=== PATIENT | male | born 1985 | race Caucasian/White ===

== ENCOUNTER 2023-03-21 14:49 | Outpatient (AMB) | payer OTHER, SELFPAY ==
[2023-03-21 14:56] VITALS: BP 124/74; PULSE 69; O2SAT 99; BMI 22.6
--- NOTE | 2023-03-21 14:56 | A.OFFPC_ITS ---
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 Unknown Last office visit/CPE: > 10 years Acute issue(s): PMHx: Hep C, Opiate dependency issues SurgHx: R lower leg & ankle fracture & repair about 3 years ago. FHx: Unknown SocHx: Hx of opiod use PFSH Medical History (Updated 03/21/23 @ 15:52 by Surendra Tran) Right ankle injury ADHD Surgical History (Updated 03/21/23 @ 15:06 by Nicole Jamison CMA) Hx of appendectomy Social History (Updated 03/21/23 @ 15:09 by Nicole Jamison CMA) Household Members: Family Are you a primary point of care specialist to a significant other at home: Yes (children) Questionnaire PHQ-9 Over the last 2 weeks, how often have you been bothered by any of the following problems? 1. Little interest or pleasure in doing things: more than half the days 2. Feeling down, depressed, or hopeless: more than half the days 3. Trouble falling or staying asleep, or sleeping too much: several days 4. Feeling tired or having little energy: more than half the days 5. Poor appetite or overeating: more than half the days 6. Feeling bad about yourself - or that you are a failure or have let yourself or your family down: more than half the days 7. Trouble concentrating on things, such as reading the newspaper or watching television: nearly every day 8. Moving or speaking so slowly that other people could have noticed. Or the op posite - being so fidgety or restless that you have been moving around a lot more than usual: nearly every day 9. Thoughts that you would be better off or of hurting yourself in some way: not at all Total score: 17 Source: Developed by Drs. Tae Paredes, Batsheva Pittman, Rad Worley and colleagues, with an educational gena from [employer]. Thrive Questionnaire Date Thrive assessed: 03/21/23 I am a: Patient What is your living situation today?: I have a steady place to live Within the past 12 months, did the food you bought not last and you didn't have the money to get more?: Never true Within the past 12 months, did you worry whether your food would run out before you got money to buy more?: Never true Do you have trouble paying for medicines?: No Do you have trouble getting transportation to medical appointments?: No Do you have trouble paying your heating and electricity bill?: No Do you have trouble taking care of your child, family member or friend?: No Do you have trouble with day-to-day activities such as bathing, preparing meals, shopping, managing finances, etc.?: Yes Are you currently unemployed and looking for a job?: Yes Are you interested in more education?: No THRIVE Score: 0 AUDIT C Alcohol Use Questionnaire (AUDIT-C) 1. How often do you have a drink containing alcohol?: Monthly or less 2. How many drinks containing alcohol do you have on a typical day when you are drinking?: 1 or 2 3. How often do you have six or more drinks on one occasion?: Never Total Score: 1 DESMOND-7 AMB Questionnaire DESMOND-7 Date DESMOND - 7 assessed: 03/21/23 Feeling nervous, anxious, or on edge: 2 = More than half the days Not being able to stop or control worryin = More than half the days Worrying too much about different things: 2 = More than half the days Trouble relaxin = More than half the days Being so restless that it is hard to sit still: 3 = Nearly every day Becoming easily annoyed or irritable: 2 = More than half the days Feeling afraid as if something awful might happen: 2 = More than half the days Total DESMOND-7 score (0-4 normal; 5-9 mild; 10-14 moderate; 15-21 severe): 15 Source: Developed by Batsheva Nogueira Kurt Kroenke and colleagues, with an educational gena from [employer]. Review of Systems Const Denies chills, Denies fatigue, Denies fever(s), Denies headache(s) and Denies weakness ENT Denies dizziness and Denies headache(s) Card Denies chest pain, Denies lightheadedness, Denies dyspnea and Denies other (Palpitations) Resp Denies cough, Denies dyspnea, Denies wheezing and Denies other ( shortness of breath) Musc Denies numbness and Denies tingling Neuro Denies dizziness, Denies headache(s), Denies numbness, Denies tingling, Denies paresthesias and Denies weakness Psych Denies anxiety and Denies depression Endo Denies fatigue Aller/Immun Denies wheezing Physical exam (Primary Care) Vital Signs: Last Vital Signs Pulse 69 03/21/23 14:56 BP 124/74 03/21/23 14:56 Pulse Ox 99 03/21/23 14:56 Oxygen Delivery Method Room Air 03/21/23 14:56 BMI result Body Mass Index 22.6 Tobacco/Smoking Status: Tobacco use Status Tobacco use date assessed 03/21/23 03/21/23 15:19 PHQ-9: PHQ-9 Score PHQ-9: Total score 17 03/21/23 15:19 Thrive Assessment: Date of Thrive Assessment Date Thrive assessed 03/21/23 03/21/23 15:19 Const General: no acute distress and well developed Nutritional Appearance: well nourished Orientation/consciousness: patient oriented x3 HENMT Head: Yes normocephalic and Yes atraumatic Eyes General: appearance normal, both eyes and all related structures Pupils: Equal, round and reactive pupils present EOM: EOMs intact bilaterally Resp Effort & Inspection: normal respiratory effort Auscultation: clear to auscultation bilaterally Cardio Rate: regular rate Rhythm: regular rhythm Heart sounds: S1 normal heart sound present, S2 normal heart sound present, no gallops, no murmurs and no rubs Neuro General: patient oriented x3 and gait normal Cranial nerves: Yes Equal, round and reactive pupils present Psych Affect: normal affect Assessment and Plan Assessment & Plan (1) History of hepatitis C: Code(s): Z86.19 - Personal history of other infectious and parasitic diseases Plan: Check?hepatitis?labs Will?likely?need?referral?to?gastroenterology?for?treatment (2) Wound of skin: Code(s): T14.8XXA - Other injury of unspecified body region, initial encounter Plan: Poorly?healing?wound?over?surgical?scar?at?right?lateral?ank le?after?open?reduction?and?fixation Can?try?Santyl Keep?the?remainder?of?the?scar/wound?moisturized (3) Right leg pain: Code(s): M79.604 - Pain in right leg Plan: Chronic?leg?pain?at?region?of?fracture?and?repair Will?give?him?a?script?for?gabapentin Avoiding?opioids (4) Knee pain: Code(s): M25.569 - Pain in unspecified knee Plan: Left?knee?pain?which?may?be?secondary?to?comp ensation?from?right?ankle?injury?and?pain Check?x-ray Briefly?discussed?physical?therapy?which?he?may?benefit?from?an?we?can?readdress ?this?at?follow (5) History of opioid abuse: Code(s): F11.11 - Opioid abuse, in remission Plan: Patient?is?no?longer?using?opioids?and?wants?to?avoid?these (6) Laboratory exam ordered as part of routine general medical examination: Code(s): Z00.00 - Encounter for general adult medical examination without abnormal findings Plan: Check?labs Orders: Orders Microalbumin, Random (w Creat) Today I10 - Essential (primary) hypertension UA and rflx microscopic Today Z00.00 - Encounter for general adult medical exa mination without abnormal findings XR knee LT 3V Today M25.569 - Pain in unspecified knee Hepatitis C Genotype Today Z86.19 - Personal history of other infectious and parasitic diseases Comprehensive [place]. Panel Fast Today Z00.00 - Encounter for general adult medical examination without abnormal findings Complete Blood Count Auto Diff Today Z00.00 - Encounter for general adult medical examination without abnormal findings Lipid Panel Today Z00.00 - Encounter for general adult medical examination without abnormal findings TSH reflex Free T4 Today Z00.00 - Encounter for general adult medical examination without abnormal findings Hepatitis B,C Profile Today Z11.3 - Encounter for screening for infections with a predominantly sexual mode of transmission Hepatitis C Viral Load Today Z86.19 - Personal history of other infectious and parasitic diseases Referrals Pain Management Referral M79.604 - Pain in right leg Medications: New collagenase clostridium histo. (Santyl) 1 appl topical DAILY 3 weeks 30 grams 0RF T14.8XXA - Other injury of unspecified body region, initial encounter gabapentin 300 mg PO BID 60 caps 1RF 30 days Coding Level of Care Code New Pt Level 4 (16375) Diagnoses History of hepatitis C Z86.19 Wound of skin T14.8XXA Right leg pain M79.604 Knee pain M25.569 History of opioid abuse F11.11 Laboratory exam ordered as part of routine general medical examination Z00.00
== END 2023-03-21 15:52 | disposition home or self-care (01) ==
PROVIDERS: PCP Family Medicine; Visit Provider Family Medicine
DX: M79.604 Pain in right leg (principal); M25.562 Pain in left knee; Z86.19 Personal history of other infectious and parasitic diseases; F11.11 Opioid abuse, in remission; T14.8XXA Other injury of unspecified body region, initial encounter
CPT/HCPCS: 99204

== ENCOUNTER → 2023-09-03 09:12 | Outpatient (AMB) | payer OTHER, SELFPAY ==
--- NOTE | 2023-09-03 09:14 | MHC.OFFWIV ---
Intake Vital Signs 09/03/23 09:18 Height 6 ft 1 in Weight 167 lb 6 oz BMI 22.1 BP 108/64 Blood Pressure Location Rt brachial Position Sitting Pulse 75 Pulse Source Pulse Oximeter Temp 97.9 F Temp Source Oral Pulse Oximetry (%) 97 Oxygen Delivery Method Room Air Intake Visit Reasons: Painful Bump on right armpit Intake Note: Painful bump on right armpit Allergies No Known Allergies Allergy (Verified 09/03/23 09:37) HPI HPI Comments History of Present Illness Details 38-year-old male, current smoker here today with chief complaints of a painful bump in his right armpit that he noticed 4 days ago. Reports that his right armpit was sore and there was a red bump. Since onset the bump is a little bit smaller, however he developed several smaller red pimple like lesions around this area. denies fever, chills, trauma to the area [facility] Medical History (Updated 03/21/23 @ 15:52 by Surendra Tran) Right ankle injury ADHD Surgical History (Updated 03/21/23 @ 15:06 by Nicole Jamison [facility]) Hx of appendectomy Social History (Updated 03/21/23 @ 15:09 by Nicole Jamison CMA) Household Members: Family Are you a primary director career services to a significant other at home: Yes (children) Physical Exam Vital Signs: Last Vital Signs Temp 97.9 F 09/03/23 09:18 Pulse 75 09/03/23 09:18 BP 108/64 09/03/23 09:18 Pulse Ox 97 09/03/23 09:18 Oxygen Delivery Method Room Air 09/03/23 09:18 BMI result Body Mass Index 22.1 Chest Chest/axillae images: 1. marble sized tender, erythematous, soft cyst, no drainage. 4-5 other small pustules scattered in axilla Assessment & Plan Assessment & Plan (1) Cutaneous abscess of right axilla: Code(s): L02.411 - Cutaneous abscess of right axilla Plan: . Medications: New doxycycline hyclate 100 mg PO BID 10 days 20 caps 0RF Patient Instructions: Advised to apply warm moist compresses several times per day, use Epsom salts, no squeezing or milk in the lesion. Take antibiotics as directed. If no improvement or worsening advised to return. Coding Level of Care Code Est Pt Level 3 (08105) Diagnoses Cutaneous abscess of right axilla L02.411
[2023-09-03 09:18] VITALS: BP 108/64; PULSE 75; TEMP 36.6; O2SAT 97; BMI 22.1
== END ==
PROVIDERS: PCP Family Medicine; Visit Provider Nurse Practitioner Family
DX: L02.411 Cutaneous abscess of right axilla (principal)
CPT/HCPCS: 99213

== ENCOUNTER → 2023-12-28 11:47 | Outpatient (AMB) | payer OTHER, SELFPAY ==
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
[2023-12-28 12:02] VITALS: BP 148/83; PULSE 83; RESP 14; O2SAT 100; BMI 21.6
== END ==
PROVIDERS: PCP Family Medicine; Visit Provider Nurse Practitioner Family
DX: S81.811A Laceration without foreign body, right lower leg, initial encounter (principal); Y09 Assault by unspecified means

== ENCOUNTER → 2023-12-28 11:47 | Outpatient (BNVA) | payer OTHER, SELFPAY | PROVIDERS: PCP Family Medicine | DX: S80.811A Abrasion, right lower leg, initial encounter (principal); S81.811A Laceration without foreign body, right lower leg, initial encounter; Y09 Assault by unspecified means | CPT/HCPCS: 90471; 90472; 90656; 90715; 99212 ==